=== PATIENT | male | born 1970 | race Caucasian/White ===

== ENCOUNTER 2017-10-04 09:18 | Emergency (ER) | payer BC ==
--- NOTE | 2017-10-04 10:34 | EDM.PDOC ---
ED HPI GENERAL MEDICAL PROBLEM - General Chief Complaint: General Stated Complaint: LIGHT HEADED AND CHEST PAIN Time Seen by Provider: 10/04/17 10:28 Source of Information: Reports: Patient, RN Notes Reviewed History Limitations: Reports: No Limitations - History of Present Illness INITIAL COMMENTS - FREE TEXT/NARRATIVE: 47-year-old gentleman presents to the emergency department today with complaint of chest pain, he has had chest pain for the last several months it seems to occur when he just gets out of the shower last anywhere from a couple minutes to 30 minutes goes away with rest he also gets some chest pain on exertion. Has had a stress test about 2 years ago states he was told it was normal cardiac history with his grandfather having a CABG no history in his mother or father, recently quit using tobacco products. This chest pain he does feel short of breath no nausea vomiting no diaphoresis, feels dizzy at this time Headache Pain Score (Numeric/FACES): 2 - Related Data Allergies Allergy/AdvReac Type Severity Reaction Status Date / Time No Known Allergies Allergy Verified 10/04/17 09:47 Home Meds: Home Meds Diltiazem HCl [Cartia Xt] 1 tab PO BID 10/04/17 [History] Fluticasone Furoate [Flonase Sensimist] 2 spray TOP DAILY 10/04/17 [History] Hydrochlorothiazide/Lisinopril [Lisinopril-HCTZ 20-25 MG] 1 tab PO BID 10/04/17 [History] Tamsulosin HCl [Flomax] 0.4 mg PO BEDTIME 10/04/17 [History] atorvaSTATin [Lipitor] 20 mg PO DAILY 10/04/17 [History] predniSONE [Prednisone] 20 mg PO DAILY 10/04/17 [History] Past Medical History HEENT History: Reports: Impaired Vision Genitourinary History: Reports: Retention, Urinary Musculoskeletal History: Reports: Fracture Other Musculoskeletal History: r ankle l lower leg Dermatologic History: Reports: Cellulitis, Eczema - Infectious Disease History Infectious Disease History: Reports: Chicken Pox - Past Surgical History HEENT Surgical History: Reports: Naso-Sinus Surgery, Tonsillectomy, Other (See Below) Other HEENT Surgeries/Procedures: nasal polyps removed Social & Family History - Tobacco Use Smoking Status *Q: Former Smoker Years of Tobacco use: 37 Packs/Tins Daily: 1.5 Used Tobacco, but Quit: Yes Month Tobacco Last Used: Aug Second Hand Smoke Exposure: No - Caffeine Use Caffeine Use: Reports: Coffee, Tea - Alcohol Use Days Per Week of Alcohol Use: 0 - Recreational Drug Use Recreational Drug Use: No ED ROS GENERAL - Review of Systems Review Of Systems: See Below Constitutional: Reports: No Symptoms HEENT: Reports: No Symptoms Respiratory: Reports: Shortness of Breath Cardiovascular: Reports: Chest Pain GI/Abdominal: Reports: No Symptoms : Reports: No Symptoms Musculoskeletal: Reports: No Symptoms Skin: Reports: No Symptoms Neurological: Reports: No Symptoms ED EXAM, GENERAL - Physical Exam Exam: See Below Free Text/Narrative:: General: Male, not in any distress, alert and oriented x3 HEENT: head is atraumatic normocephalic, eyes pupils equal round reactive to light, sclera clear no conjunctivitis appreciated. Ears tympanic membranes clear and chan landmarks and light reflex are present bilaterally canals are clear. Nose no septal deviation, nares are clear, no blood present. Mouth mucosa is moist and pink no erythema or exudate noted in soft palate, tongue is midline uvula is midline, dentition is intact. Neck: Supple no thyromegaly no tracheal deviation. Nodes: Cervical nodes subclavicular nodes nontender no palpable lymphadenopathy noted. Lungs: clear to auscultation bilaterally with symmetrical respirations, no adventitious noise appreciated. CV: Regular rate and rhythm S1 and S2 appreciated no murmurs rubs or gallops noted. Abdomen: Soft, nontender, no palpable masses or organomegaly appreciated, no distention no guarding bowel sounds are present, . Neuro: Cranial nerves II through XII grossly intact Skin: Warm and dry, intact Extremities: No lower extremity edema appreciated, Course - Vital Signs Last Recorded V/S: Last Vital Signs Temp 96.3 F 10/04/17 10:04 Pulse 67 10/04/17 12:39 Resp 16 10/04/17 12:39 BP 127/75 10/04/17 12:39 Pulse Ox 93 L 10/04/17 12:39 - Orders/Labs/Meds Orders: Active Orders 24 hr Category Date Time Status Cardiac Monitoring [RC] .As Directed Care 10/04/17 10:31 Active EKG Documentation Completion [RC] ASDIRECTED Care 10/04/17 10:31 Active Chest 2V [CR] Stat Exams 10/04/17 10:31 Taken EKG 12 Lead [EK] Stat Ther 10/04/17 10:31 Ordered Labs: Laboratory Tests 10/04/17 10/04/17 10/04/17 Range/Units 10:42 10:42 12:16 WBC 18.0 H (4.5-11.0) K/uL RBC 5.18 (4.30-5.90) M/uL Hgb 15.0 (12.0-15.0) g/dL Hct 43.1 (40.0-54.0) % MCV 83 (80-98) fL MCH 29 (27-31) pg MCHC 35 (32-36) % Plt Count 254 (150-400) K/uL Neut % (Auto) 83 H (36-66) % Lymph % (Auto) 14 L (24-44) % [place] % (Auto) 3 (2-6) % Eos % (Auto) 0 L (2-4) % Baso % (Auto) 0 (0-1) % Sodium 140 (140-148) mmol/L Potassium 3.8 (3.6-5.2) mmol/L Chloride 101 (100-108) mmol/L Carbon Dioxide 28 (21-32) mmol/L Anion Gap 11.3 (5.0-14.0) mmol/L BUN 20 H (7-18) mg/dL Creatinine 1.3 (0.8-1.3) mg/dL Est Cr Clr Drug Dosing 82.15 mL/min Estimated GFR (MDRD) 59 L (>60) Glucose 265 H (74-106) mg/dL Hemoglobin A1c 8.2 H (4.5-6.2) % Calcium 9.8 (8.5-10.1) mg/dL Total Bilirubin 0.3 (0.2-1.0) mg/dL AST 28 (15-37) U/L ALT 89 H (12-78) U/L Alkaline Phosphatase 73 (46-116) U/L CK-MB (CK-2) 0.2 (0-3.6) mg/mL Troponin I < 0.017 (0.000-0.056) ng/mL Total Protein 7.7 (6.4-8.2) g/dL Albumin 3.5 (3.4-5.0) g/dL Globulin 4.2 H (2.3-3.5) g/dL Albumin/Globulin Ratio 0.8 L (1.2-2.2) Departure - Departure Time of Disposition: 13:10 Disposition: Home, Self-Care 01 Condition: Good Clinical Impression: New onset type 2 diabetes mellitus - Discharge Information Referrals: Yury Tejeda MD [Primary Care Provider] - Forms: ED Department Discharge Additional Instructions: Start the metformin 500 mg one tablet once a day please follow-up with your primary care the next 3-5 days for reevaluation - My Orders Last 24 Hours: My Active Orders 10/04/17 10:31 Cardiac Monitoring [RC] .As Directed EKG Documentation Completion [RC] ASDIRECTED Chest 2V [CR] Stat EKG 12 Lead [EK] Stat - Assessment/Plan Last 24 Hours: My Active Orders 10/04/17 10:31 Cardiac Monitoring [RC] .As Directed EKG Documentation Completion [RC] ASDIRECTED Chest 2V [CR] Stat EKG 12 Lead [EK] Stat Plan: Assessment Acuity = acute Site and laterality = new onset diabetes mellitus type 2, Etiology = unclear etiology Manifestations = none Location of injury = Home Lab values = WBC elevated 18.0 consistent leukocytosis, glucose elevated 265 consists with hyperglycemia A1c elevated at 8.2 consistent with diabetes mellitus type 2 troponin is negative EKG demonstrates borderline prolonged VA interval with nonspecific conduction delay, chest x-ray no acute process I did review films myself I cannot appreciate any acute process, the official read from radiology is pending Plan I did review lab work with him as well as counseling on starting medication to try metformin 500 mg once a day he is to follow-up with his primary care provider in the next 3-5 days for further evaluation Patient was in agreement with the plan all questions were answered, they were instructed to return to the emergency department or call for worsening symptoms. This note was dictated using [employer] voice recognition software please call with any questions.
--- NOTE | 2017-10-04 13:12 | CR ---
Chest 2V HISTORY: Chest pain. COMPARISON: None FINDINGS: Cardiac size and pulmonary vessels are normal. No focal infiltrates or effusions.
== END 2017-10-04 13:26 | disposition home or self-care (01) ==
LOC: JP.ED 09:18
DX: E11.9 Type 2 diabetes mellitus without complications (principal); Z87.891 Personal history of nicotine dependence; Z79.899 Other long term (current) drug therapy
CPT/HCPCS: 36415; 71020; 71020-26; 80053; 82553; 83036; 84484; 85025; 93005; 99284-25